=== PATIENT | female | born 1945 | race Caucasian/White ===

== ENCOUNTER → 2017-12-11 20:55 | Outpatient (CLI) | payer MEDICARE, OTHER ==
[2012-12-08 12:24] VITALS: BMI 27.0
== END | disposition home or self-care (01) ==
LOC: D.MAMMO 12-04 15:30
DX: Z12.31 Encounter for screening mammogram for malignant neoplasm of breast (principal)

== ENCOUNTER 2019-01-12 18:55 | Outpatient (CLI) | payer MEDICARE, OTHER ==
[2012-12-08 12:24] VITALS: BMI 27.0
== END 2019-01-12 19:00 | disposition home or self-care (01) ==
LOC: D.MAMMO 18:55
PROVIDERS: ATTEND Family Medicine
DX: Z12.31 Encounter for screening mammogram for malignant neoplasm of breast (principal)

== ENCOUNTER 2020-07-12 19:00 | Outpatient (CLI) | payer MEDICARE, OTHER ==
[2012-12-08 12:24] VITALS: BMI 27.0
== END 2020-07-12 23:59 | disposition home or self-care (01) ==
LOC: D.MAMMO 19:00
PROVIDERS: ATTEND Family Medicine
DX: Z12.31 Encounter for screening mammogram for malignant neoplasm of breast (principal)